=== PATIENT | female | born 1965 | race Caucasian/White ===

== ENCOUNTER 2023-08-18 10:26 | Outpatient (CLI) | payer MEDICAID, SELFPAY | END 2023-08-18 10:27 | disposition home or self-care (01) | LOC: MOBLMAM 10:32 | PROVIDERS: PCP Nurse Practitioner Family; Visit Provider Nurse Practitioner Family | DX: Z12.11 Encounter for screening for malignant neoplasm of colon (principal) | CPT/HCPCS: 77063; 77067 ==